=== PATIENT | male | born 1995 | race Caucasian/White ===

== ENCOUNTER 2019-06-18 17:11 | Emergency (ER) | payer MEDICAID ==
[~2019-06-18] VITALS: Ht 180.3 cm; Wt 62.0 kg
[~2019-06-18 17:11] MED LIST: ONDA4TAB6 PO
[2019-06-18 17:21] VITALS: BP 122/77
--- NOTE | 2019-06-18 17:57 | NUR ---
C/O BILAT EAR PAIN. RIGHT EAR HAS BEEN PAINFUL X 4 DAYS AND LEFT EAR HAS BEEN PAINFUL X 2 DAYS. STATES INTERMITTENT HEADACHE AND FEELING THAT EARS ARE PLUGGED UP. DENIES COUGH OR CONGESTION.
[2019-06-18] MEDS ORDERED: FLUC100T PO (18:07)
[2019-06-18] MEDS ORDERED: AMOX-580 PO (18:07)
== END 2019-06-18 18:21 | disposition home or self-care (01) ==
LOC: ER 17:11
DX: H66.93 Otitis media, unspecified, bilateral (principal); B35.4 Tinea corporis
CPT/HCPCS: 99283